=== PATIENT | female | born 1965 | race Caucasian/White ===

== ENCOUNTER → 2018-12-01 | Day surgery (SDC) | payer OTHER ==
[2018-11-28 09:51] LABS: BUN Blood Urea Nitrogen 11 mg/dL (7-18); Bicarbonate 30 mmol/L (21-32); Glucose Level 109 mg/dL (74-106); Potassium 4.2 mmol/L (3.5-5.1); Sodium Level 139 mmol/L (136-145)
[~2018-12-01] MED LIST: DEXAMETHASONE 4 MG/ML VIAL ONE; EPHEDRINE SULF 50 MG/ML VIAL ONE; FENTANYL CITR 100 MCG/2 ML ONE; KETOROLAC 30 MG/ML INJ ONE; LIDOCAINE 1% W/EPI 1:100,000 MDV 50 ML VIAL ONE; LIDOCAINE 2% MPF 5 ML VIAL ONE; MIDAZOLAM HCL 2 MG/2 ML INJ ONE; NA CHLORIDE 0.9% 1,000 ML ONE; NS 0.9% VIAL 10 ML ONE; ONDANSETRON 4 MG/2 ML VIAL ONE; PROPOFOL 200 MG/20 ML VIAL IV ONE; Phenylephrine HCl 10 MG/ML 1 ML VIAL ONE; Ringers Lactate 1,000 ML IV ONE
[2018-12-01] MEDS: FENTANYL CITR 100 MCG/2 ML ONE ×2 (08:47→09:00)
[2018-12-01 10:37] LABS: Potassium 4.1 mmol/L (3.5-5.1)
--- NOTE | 2018-12-01 16:11 | OP ---
Date of Procedure: 12/01/2018 Surgeon: Mary Jo Carmona MD Preoperative Diagnoses: Menorrhagia, possible polyp or fibroid. Postoperative Diagnoses: Abnormal uterine bleeding-uterine fibroids (AUB-L). Procedures Performed: Hysteroscopy, hysteroscopic resection of myoma, dilation and curettage, operat rohan hysteroscopy was performed with Symphion device. Anesthesia: General with LMA. Specimens: Fibroid and endometrial curettings. Complications: None. Drain: None. Fluids: 950 normal saline infused for the resection, 250 deficit. Mean arterial pressure in the 70-80 mm range and the set pressure started at 80 mmHg and was able to be maintained at the same level without any variations. Good cavity distention, visualization. Good hemostasis at the end of the case. Procedure In Detail: After informed consent was verified, the patient was taken back to OR, placed i n the supine fashion on the operating table, general anesthesia given. She was placed in a dorsal li thotomy position using Vipin stirrups. Pelvic exam performed. Uterus slightly enlarged, anteflexed. Cervix unremarkable. Prep x3 with Betadine was done. Speculum was placed to expose the cervix. Anterior lip grasped with 2 Allis clamps. Diagnostic SlimLine hysteroscope was introduced with normal saline as distention me dium, 30-degree lens. Under direct visualization through the cervical canal, uterine cavity was ente red. The myoma was found to be type 2 at the fundus and the anterior wall to the right. Rest of the endometrium was unremarkable. Both tubal ostia were visualized. Scope was then removed. The plan was made to perform a myomectomy as a treatment method for her bleeding, so that she would not have t o do any other procedures for her management of bleeding. Then, the Symphion device was taken. The scope was primed according to the package instructions. Th e mean arterial pressure was about 69-70 mmHg. This was intended to be maintained at 80, so we start ed with a set pressure of 80 mmHg using normal saline. The cervix was dilated to 14-Mongolian. Then, t he scope was introduced without any problems after visualizing the cavity and the myoma. After good distention was obtained, resection was started with the resecting device based through the operative scope. The myoma was resected. As more of it was resected, further protruded into the uterine cavit y, and I was able to completely resect the myoma about 2 cm in size. Once all this was removed, the base was cauterized with the bipolar. Then endometrial curettings were performed. All these were in the specimen catchment bag as part of the device. The scope was then removed. After thorough irrig ation suction, the instruments were removed. Instrument, needle, and sponge counts were done and wer e correct at the end of the case. EBL was minimal. The patient was recovered from anesthesia after giving her some Toradol. She will follow up with me in 1 week. FERMÍN/EFREN Voice ID: [id number] Report ID: [id number]
== END ==
LOC: OR 06:25
PROVIDERS: ATTEND Obstetrics & Gynecology
PROC: 0UB98ZZ Excision of Uterus, Via Natural or Artificial Opening Endoscopic (ICD-10-PCS; principal; 2018-12-01 07:30)
DX: N80.0 Endometriosis of uterus (principal); D25.9 Leiomyoma of uterus, unspecified; N92.1 Excessive and frequent menstruation with irregular cycle; N95.1 Menopausal and female climacteric states; E78.2 Mixed hyperlipidemia
CPT/HCPCS: 36415; 80048; 81025; 88305; J2250; J2370; J2405; J2704; J3010; J7030